=== PATIENT | female | born 1955 | race Caucasian/White ===

== ENCOUNTER 2017-05-07 13:26 | Emergency (ER) | payer OTHER ==
[~2017-05-07] VITALS: Ht 147.3 cm; Wt 67.0 kg
[~2017-05-07 13:26] MED LIST: CLIN-73 PO; JANUVIA; LIPITOR; METF500T4; TRAM50TA2 PO; VALS40TA2
[2017-05-07 13:39] VITALS: Ht 147.3 cm; Wt 67.0 kg
--- NOTE | 2017-05-07 16:38 | RADRPT ---
PROCEDURE: Right knee x-ray CLINICAL INDICATION: Right knee pain, injury TECHNIQUE: Multiple views of the knee were obtained. COMPARISON: None FINDINGS: There is normal mineralization. There is a comminuted, mildly displaced fracture involving the mid to inferior patella. No additional fractures are identified. There is a moderate joint effusion. Medial, lateral and posterior patellar osteophytes are seen. There is no significant soft tissue swelling. IMPRESSION: 1. Comminuted, mildly displaced fracture involving the mid to inferior patella. 2. Moderate joint effusion. 3. Small medial, lateral and posterior patellar osteophytes are seen. RPTAT:AAJJ Physician Marion Date Time Electronically viewed and signed by Physician Marion on 05/07/2017 16:38 /
[2017-05-07] MEDS ORDERED: HYDR-906 PO (16:50)
--- NOTE | 2017-05-07 17:06 | ERD ---
ER Documentation Chief Complaint Date/Time DATE: 05/07/17 TIME: 17:03 Chief Complaint RIGHT KNEE, RIGHT HIP, BILATERAL SHOULDER PAIN DUE TO FALL MONDAY HPI 61-year-old female coming in complaining of right knee pain and bilateral shoulder pain after a fall 4 days ago. Patient has not taken medications for pain. Pain is worse with ambulation. Patient's shoulders hurt less in her right knee. Patient states she has full range of motion of bilateral upper extremities. With no numbness and tingling. Patient has pain with flexion extension of her right knee. No numbness or tingling to her right lower extremity. No head injury or loss of conscious. This was mechanical fall ROS All systems reviewed and are negative except as per history of present illness. Medications Home Meds Active Scripts Hydrocodone/Acetaminophen (Leslie 5-325 Tablet) 1 Each Tablet, 1 TAB PO Q6H Y for PAIN, #7 TAB Prov:TIMOTHY ARZOLA PA-C 05/07/17 Tramadol HCl (Tramadol HCl) 50 Mg Tablet, 50 MG PO Q4 Y for PAIN, #20 TAB Prov:BOLIVAR CRAMER PA-C 02/05/16 Clindamycin Hcl* (Clindamycin Hcl*) 300 Mg Capsule, 300 MG PO TID for 10 Days, CAP Prov:BOLIVAR CRAMER PA-C 02/05/16 Reported Medications Valsartan* (Diovan*) 40 Mg Tablet 09/30/09 [Lipitor] No Conflict Check 09/30/09 [Januvia] No Conflict Check 09/30/09 Metformin* (Glucophage*) 500 Mg Tab 09/30/09 Allergies Allergies: Coded Allergies: No Known Drug Allergy (Verified Allergy, Mild, 09/30/09) PMhx/Soc History of Surgery: Yes (HYSTERECTOMY) Hx Neurological Disorder: No Hx Respiratory Disorders: No Hx Cardiac Disorders: No Hx Miscellaneous Medical Probl: Yes (ARTHRITIS L KNEE) Hx Alcohol Use: No Hx Substance Use: No Hx Tobacco Use: No Smoking Status: Never smoker Physical Exam Vitals Vital Signs Date Time Temp Pulse Resp B/P Pulse Ox O2 Delivery O2 Flow Rate FiO2 05/07/17 13:39 98.2 71 17 155/67 98 Physical Exam GENERAL: The patient is well-appearing, well-nourished, in no acute distress CHEST: Clear to auscultation bilaterally. There are no rales, wheezes or rhonchi. HEART: Regular rate and rhythm. No murmurs, clicks, rubs or gallops. No S3 or S4. EXTREMITIES: Equal pulses bilaterally. There is no peripheral clubbing, cyanosis or edema. No focal swelling or erythema. Full range of motion. Grossly neurovascularly intact. Tenderness to palpation to her right patella. No valgus or varus deformity. No crepitus felt on exam. No tenderness to palpation over the right and left clavicle NEUROLOGIC: Alert and oriented. Cranial nerves II through XII intact. Motor strength in all 4 extremities with 5 out of 5 strength. Sensation grossly intact. Normal speech and gait. Babinski negative. DTR 2+ throughout. SKIN: There is no apparent rash or petechiae. The skin is warm and dry. Procedures/MDM DIAGNOSTIC IMAGING REPORT Patient: AUREA STUART : 1955 Age: 61 Sex: F MR #: [id number] DOS: 05/07/17 1605 Ordering MD: HANK ARZOLA PA-C Location: [facility] Room/Bed: PROCEDURE: Right knee x-ray CLINICAL INDICATION: Right knee pain, injury TECHNIQUE: Multiple views of the knee were obtained. COMPARISON: None FINDINGS: There is normal mineralization. There is a comminuted, mildly displaced fracture involving the mid to inferior patella. No additional fractures are identified. There is a moderate joint effusion. Medial, lateral and posterior patellar osteophytes are seen. There is no significant soft tissue swelling. IMPRESSION: 1. Comminuted, mildly displaced fracture involving the mid to inferior patella. 2. Moderate joint effusion. 3. Small medial, lateral and posterior patellar osteophytes are seen. ER Course: Knee immobilizer given in ED MDM: I have low suspicion for acute neuro deficit. I have low suspicion for dislocation. Patient has fracture on patella but fracture is stable. Patient will be able to follow up outpatient and told to remain non weightbearing. Departure Diagnosis: Primary Impression: Patellar fracture Condition: Stable Patient Instructions: Patella Fracture Referrals: COTY MILLARD MD [facility] Hours: Mon-Fri 9:00 AM - 5:00 PM Additional Instructions: FOLLOW UP WITH YOUR PRIMARY CARE PHYSICIAN TOMORROW.Return to this facility if you are not improving as expected. TIMOTHY ARZOLA PA-C May 07, 2017 17:06
== END 2017-05-07 17:03 | disposition home or self-care (01) ==
LOC: FTE 13:26
DX: S82.042A Displaced comminuted fracture of left patella, initial encounter for closed fracture (principal); W18.39XA Other fall on same level, initial encounter; Y92.9 Unspecified place or not applicable; Z79.84 Long term (current) use of oral hypoglycemic drugs
CPT/HCPCS: 73562